=== PATIENT | male | born 1965 | race Two or more races ===

== ENCOUNTER 2018-05-12 14:27 | Emergency (ER) | payer SELFPAY | END 2018-05-12 17:40 | disposition home or self-care (01) | LOC: MADERS 14:27 | DX: M25.571 Pain in right ankle and joints of right foot (principal); E13.8 Other specified diabetes mellitus with unspecified complications; F17.210 Nicotine dependence, cigarettes, uncomplicated | CPT/HCPCS: 99281 ==

== ENCOUNTER 2022-07-14 17:20 | Emergency (ER) | payer OTHER, MEDICAID ==
[2022-07-14] MEDS ORDERED: Sodium Chloride 0.9% 1,000 ML ONE (18:00)
[2022-07-14 18:07] LABS: Prothrombin Time 13.1 sec (12.0-14.7)
[2022-07-14 18:08] LABS: Hemoglobin 14.7 g/dL (14.0-18.0); Mean Corpuscular HGB CONC 36.4 g/dL (32.0-36.0); Mean Corpuscular Hemoglobin 35.4 pg (27.0-31.0); Mean Corpuscular Volume 97.3 fl (78.0-98.0); PTT 27.4 sec (22.9-36.1); Platelet Count 190 10x3/uL (130-400); RBC Distribution Width 11.2 % (11.5-14.5); Red Blood Cell (RBC) Count 4.14 mill/uL (4.70-6.10); White Blood Cell (WBC) Count 4.6 10x3/uL (4.8-10.8)
[2022-07-14 18:10] LABS: D-Dimer Test 0.47 *mcg/mL (0.27-0.43)
[2022-07-14 18:17] LABS: #Basophils 0.1 thou/uL (0.0-0.2); #Eosinphils 0.1 thou/uL (0.0-0.7); #Lymphocytes 1.1 thou/uL (1.20-3.40); #Monocytes 0.4 thou/uL (0.11-0.59); #Neutrophils 2.9 thou/uL (1.40-6.50); %Basophils 1.2 % (0.0-1.0); %Eosinophils 3.2 % (0.0-10.0); %Lymphocytes 24.4 % (21.0-51.0); %Monocytes 9.4 % (0.0-10.0); %Neutrophils 61.7 % (42.0-75.0); Platelet Morphology Comment Appears Adequate; RBC Morphology Normal
[2022-07-14 18:23] LABS: MDiff Complete? YES
[2022-07-14 18:24] LABS: ALT (SGPT) 56 U/L (8-55); AST (SGOT) 38 U/L (5-34); Albumin 4.2 g/dL (3.5-5.0); Alkaline Phosphatase 85 U/L (40-110); Anion Gap 12 mmol/L (10-20); BUN (Urea Nitrogen) 16 mg/dL (8.4-25.7); Bilirubin, Total 0.2 mg/dL (0.2-1.2); Calc. Creatinine Clearance 0 mL/min (70-130); Calcium 9.6 mg/dL (7.8-10.44); Carbon Dioxide 24 mmol/L (22-29); Chloride 109 mmol/L (98-107); Estimated GFR 56; Glucose 263 mg/dL (70-105); Magnesium 2.1 mg/dL (1.6-2.6); Potassium 4.3 mmol/L (3.5-5.1); Protein, Total 7.2 g/dL (6.0-8.3); Sodium 141 mmol/L (136-145)
== END 2022-07-14 18:50 | disposition home or self-care (01) ==
LOC: MADERS 17:20
DX: I95.1 Orthostatic hypotension (principal); R00.2 Palpitations; E10.9 Type 1 diabetes mellitus without complications; F17.210 Nicotine dependence, cigarettes, uncomplicated
CPT/HCPCS: 71045; 80053; 83735; 83880; 84484; 85025; 85379; 85610; 85730; 93005; 96360; J7050

== ENCOUNTER 2023-04-15 10:31 | Outpatient (CLI) | payer OTHER, MEDICAID | END 2023-04-15 10:32 | disposition home or self-care (01) | LOC: MADRAD 10:31 | PROVIDERS: ATTEND Internal Medicine | DX: R05.9 Cough, unspecified (principal) | CPT/HCPCS: 71046 ==